=== PATIENT | male | born 1990 | race Caucasian/White ===

== ENCOUNTER 2016-10-22 02:24 | Emergency (ER) | payer BC, OTHER ==
[2016-10-22 02:33] VITALS: BP 125/78
[2016-10-22] MEDS ORDERED: Albuterol/Ipratropium 3.0-0.5 MG/3 ML Neb Soln NEB ONE (02:38)
--- NOTE | 2016-10-22 02:48 | EDM.PDOC ---
ED HPI GENERAL MEDICAL PROBLEM - General Chief Complaint: Respiratory Problem Stated Complaint: ASTHMA? COUGHING AND WEEZING Time Seen by Provider: 10/22/16 02:36 Source of Information: Reports: Patient History Limitations: Reports: No Limitations - History of Present Illness INITIAL COMMENTS - FREE TEXT/NARRATIVE: c/o asthma, worsening since harvest started. Usually uses ialbuterol inhaler one time per week. Out of inhaler since Thursday. Called clinic and pharmacy for refill but have not heard back. Increased cough and wheezing tonight. No fever. - Related Data Allergies Allergy/AdvReac Type Severity Reaction Status Date / Time No Known Allergies Allergy Verified 10/22/16 02:37 Home Meds: Home Meds Albuterol [Ventolin HFA] 2 inh INH ASDIRECTED PRN 10/22/16 [History] Social & Family History - Tobacco Use Smoking Status *Q: Never Smoker Second Hand Smoke Exposure: No - Alcohol Use Days Per Week of Alcohol Use: 0 - Recreational Drug Use Recreational Drug Use: No ED ROS GENERAL - Review of Systems Review Of Systems: ROS reveals no pertinent complaints other than HPI. ED EXAM, GENERAL - Physical Exam Exam: See Below Exam Limited By: No Limitations General Appearance: Alert, Mild Distress Eye Exam: Bilateral Eye: EOMI Ears: Normal External Exam, Normal TMs Nose: Normal Inspection Throat/Mouth: Normal Inspection Head: Atraumatic, Normocephalic Neck: Normal Inspection. No: Lymphadenopathy (L), Lymphadenopathy (R) Respiratory/Chest: Respiratory Distress, Wheezing, Other (dry cough). No: Accessory Muscle Use Cardiovascular: Normal Peripheral Pulses, Regular Rate, Rhythm Back Exam: Normal Inspection Neurological: Alert, Oriented Psychiatric: Normal Affect Skin Exam: Warm, Dry, Intact, Normal Color Course - Vital Signs Last Recorded V/S: Last Vital Signs Temp 96.6 F 10/22/16 02:32 Pulse 99 10/22/16 02:32 Resp 21 H 10/22/16 02:32 BP 125/78 10/22/16 02:32 Pulse Ox 99 10/22/16 02:32 - Orders/Labs/Meds Orders: Active Orders 24 hr Category Date Time Status RT Aerosol Therapy [RC] ASDIRECTED Care 10/22/16 02:38 Active Meds: Medications Discontinued Medications Generic Name Dose Route Start Last Admin Trade Name Freq PRN Reason Stop Dose Admin Albuterol Confirm 10/22/16 03:13 10/22/16 03:15 Proventil Hfa Administered 10/22/16 03:14 6.7 gm Dose Administration 6.7 gm INH .STK-MED ONE Albuterol/Ipratropium 3 ml 10/22/16 02:38 10/22/16 02:45 Duoneb 3.0-0.5 Mg/3 Ml NEB 10/22/16 02:39 3 ml ONETIME ONE Administration Prednisone 40 mg 10/22/16 03:05 10/22/16 03:15 Prednisone PO 10/22/16 03:06 40 mg ONETIME ONE Administration - Re-Assessments/Exams Free Text/Narrative Re-Assessment/Exam: 10/22/16 04:12 Improved breath sound following nebulizer treatment with Duoneb. Departure - Departure Time of Disposition: 03:04 Disposition: Home, Self-Care 01 Condition: Good Clinical Impression: Acute asthma - Discharge Information Instructions: Asthma, Adult Forms: ED Department Discharge Additional Instructions: Albuterol Inhaler 2 puffs every 4 hours as needed Prednisone 40mg x 2 days, 30mg, x2 days, 20x 2 days, 10 x 2 days Follow up in clinic one week, sooner if symptoms not improving - My Orders Last 24 Hours: My Active Orders 10/22/16 02:38 RT Aerosol Therapy [RC] ASDIRECTED - Assessment/Plan Last 24 Hours: My Active Orders 10/22/16 02:38 RT Aerosol Therapy [RC] ASDIRECTED
[2016-10-22] MEDS ORDERED: predniSONE 20 MG Tab PO ONE (03:05)
[2016-10-22] MEDS ORDERED: Albuterol 6.7 GM Inhaler INH ONE (03:13)
== END 2016-10-22 03:19 | disposition home or self-care (01) ==
LOC: DL.ED 02:24
DX: J45.901 Unspecified asthma with (acute) exacerbation (principal)
CPT/HCPCS: 94640; 99284; A9270

== ENCOUNTER 2018-07-04 01:02 | Emergency (ER) | payer OTHER ==
[2018-07-04 01:15] VITALS: BP 146/101
--- NOTE | 2018-07-04 01:28 | EDM.PDOC ---
ED HPI GENERAL MEDICAL PROBLEM - General Chief Complaint: Back Pain or Injury Stated Complaint: BACK PAIN [id number] Time Seen by Provider: 07/04/18 01:20 Source of Information: Reports: Patient, RN History Limitations: Reports: No Limitations - History of Present Illness INITIAL COMMENTS - FREE TEXT/NARRATIVE: C/o Low back pain with radiation to both hips and down legs. Reports chronic back problems x 10 years since injury during basketball, Has been in PT nothing rect. Clinic in May with PCP given Flexeril. last at 1030am. Xrays done and told were negative. Tonight pain worse after long period of sitting with in labor. No weakness, Pain worse with position change, periods of sitting or standing, no saddle anesthesia no incontinence. Lower Back Pain Score (Numeric/FACES): 8 - Related Data Allergies Allergy/AdvReac Type Severity Reaction Status Date / Time No Known Allergies Allergy Verified 07/04/18 01:14 Home Meds: Home Meds Albuterol [Ventolin HFA] 2 inh INH ASDIRECTED PRN 10/22/16 [History] Cyclobenzaprine [Flexeril] 5 mg PO TID PRN 07/04/18 [History] Past Medical History Respiratory History: Reports: Asthma Musculoskeletal History: Reports: Back Pain, Chronic Social & Family History - Tobacco Use Smoking Status *Q: Former Smoker Used Tobacco, but Quit: No - Caffeine Use Caffeine Use: Reports: Coffee - Recreational Drug Use Recreational Drug Use: No ED ROS GENERAL - Review of Systems Review Of Systems: ROS reveals no pertinent complaints other than HPI. ED EXAM,LOWER BACK PAIN/INJURY - Physical Exam Exam: See Below Exam Limited By: No Limitations General Appearance: Alert, Moderate Distress Eye Exam: Bilateral Eye: EOMI, PERRL Ears: Normal External Exam, Hearing Grossly Normal Nose: Normal Inspection Throat/Mouth: Normal Voice Head: Atraumatic, Normocephalic Neck: Full Range of Motion Respiratory/Chest: No Respiratory Distress, Normal Breath Sounds Cardiovascular: Normal Peripheral Pulses, Regular Rate, Rhythm GI/Abdominal: Soft Back Exam: Decreased Range of Motion, Paraspinal Tenderness (mild lumbar), Vertebral Tenderness (low lumbar sacral). No: CVA Tenderness (L), CVA Tenderness (R) Extremities: Normal Range of Motion, Other (equal strength bilateral). No: Leg Pain Neurological: Normal Plantar Flexion, Normal Reflexes, Oriented x 3. No: Straight Leg Raise (L), Straight Leg Raise (R), Saddle Anesthesia DTR - Lower Extremities: 2+: Knee (R), Knee (L) Psychiatric: Normal Affect, Normal Mood Skin Exam: Warm, Dry, Intact, Normal Color Course - Vital Signs Last Recorded V/S: Last Vital Signs Temp 98.0 F 07/04/18 01:14 Pulse 102 H 07/04/18 01:14 Resp 20 07/04/18 01:14 BP 146/101 H 07/04/18 01:14 Pulse Ox 100 07/04/18 01:14 Departure - Departure Time of Disposition: 01:32 Disposition: Home, Self-Care 01 Condition: Good Clinical Impression: Back pain Qualifiers: Back pain location: low back pain Chronicity: unspecified Back pain laterality : midline Sciatica presence: without sciatica Qualified Code(s): M54.5 - Low back pain - Discharge Information *PRESCRIPTION DRUG MONITORING PROGRAM REVIEWED*: Yes *COPY OF PRESCRIPTION DRUG MONITORING REPORT IN PATIENT GIULIA: No Instructions: Acute Back Pain, Adult Additional Instructions: follow up with primary care this week continue flexeril as ordered by primary provider every 8 hours as needed prednisone 20mg daily x 5 days, 1 daily x 5 days, then 1/2 tablet daily x 4 days tylenol 650mg every 4 hours as needed may use ice or heat
[2018-07-04] MEDS ORDERED: predniSONE 20 MG Tab PO ONE (01:29)
[2018-07-04] MEDS ORDERED: Cyclobenzaprine 10 MG Tab PO ONE (01:29)
== END 2018-07-04 01:40 | disposition home or self-care (01) ==
LOC: DL.ED 01:02
DX: M54.5 Low back pain (principal); J45.909 Unspecified asthma, uncomplicated; Z79.899 Other long term (current) drug therapy; Z87.891 Personal history of nicotine dependence
CPT/HCPCS: 99283; A9270

== ENCOUNTER 2021-10-19 18:46 | Emergency (ER) | payer OTHER ==
[2021-10-19] MEDS ORDERED: Azithromycin 250 MG Tab PO ONE (18:47)
[2021-10-19] MEDS ORDERED: cefTRIAXone 1 GM, Lidocaine 1% 2.1 ML IM ONE ×2 (19:29)
[2021-10-19] MEDS ORDERED: Azithromycin 250 MG Tab ONE (19:41)
[2021-10-19 19:48] VITALS: BP 130/93; PULSE 83
== END 2021-10-19 19:51 | disposition home or self-care (01) ==
LOC: DL.ED 18:46
DX: J02.0 Streptococcal pharyngitis (principal); Z87.891 Personal history of nicotine dependence
CPT/HCPCS: 87081; 87430; 96372; 99282; 99283; A9270-GY; J0696

== ENCOUNTER 2022-03-23 14:25 | Emergency (ER) | payer OTHER ==
[2022-03-23] MEDS ORDERED: Sodium Chloride 0.9% 1,000 ML IV ONE (14:35)
[2022-03-23] MEDS ORDERED: diphenhydrAMINE 50 MG/ML SDV IVPUSH ONE (14:36)
[2022-03-23] MEDS ORDERED: methylPREDNISolone Sodium Succinate 125 MG/2 ML SDV IVPUSH ONE (14:36)
[2022-03-23 15:12] VITALS: BP 127/91; PULSE 84
== END 2022-03-23 15:25 | disposition home or self-care (01) ==
LOC: DL.ED 14:25
DX: T78.40XA Allergy, unspecified, initial encounter (principal); J45.909 Unspecified asthma, uncomplicated; Z79.899 Other long term (current) drug therapy
CPT/HCPCS: 96361; 96374; 96375; 99282; J1200; J2930; J7030